=== PATIENT | male | born 1960 ===

== ENCOUNTER 2024-05-31 23:32 | Inpatient (IN) | payer MEDICARE, SELFPAY ==
[2024-05-31 18:35] VITALS: BP 134/88
--- NOTE | 2024-05-31 19:19 | ED.GENMED ---
History of Present Illness
General
Chief Complaint: Abdominal Pain
Source: patient
Time Seen by Provider: 05/31/24 19:09
History of Present Illness
History of Present Illness:
64-year-old male with past medical history of cardiac transplant in 2003 secondary to diagnosis of HOCM, newly diagnosed stage III chronic kidney disease and diabetes presenting to the emergency department for evaluation of left lower quadrant
abdominal pain that started about 3 days ago, gradually worsening during this time, today found to be febrile at urgent care, 100.6, thus having the urgent care recommended he come to the ER for further evaluation. Patient is noting moderate pain
within the left lower quadrant and states that even when pressing on the right side of his abdomen he is feeling the pain on the left. He notes nausea but without any vomiting. He notes a history of diverticulitis in the past also stating that he
had 2 previous bowel obstructions that required transfer from here to [facility]. He had his cardiac transplant at [facility] as well and notes good compliance with all of his medications. Patient without any other symptoms at this time.
Past History
Past History
ED Past Medical History: Arrthythmia (Atrial fibrillation), Cancer (Colon cancer), HTN, Hypercholesterolemia, Other (Factor V deficiency, past history of cardiomyopathy) and Other (PTT)
ED Past Surgical History: Cardiac, Tonsilectomy and Other
Social History
Tobacco: Non-smoker
Alcohol: Occasional
Drug: None
Personal:
Living: with family
Employment: Disabled (unknown)
Family History
Family History: Unable to obtain
Review of Systems
Review of Systems
All Other Systems: ROS reviewed and negative except as documented in HPI and ROS
Phy Exam
Physical Exam
Physical Exam:
GENERAL: Alert , appears uncomfortable
EYE: clear conjunctiva b/l
HEAD: NCAT
ENT: mmm.
CARDIAC: Regular rate and rhythm .
LUNGS: Clear breath sounds bilaterally, no acute respiratory distress, no wheezes/rales/rhonchi
ABDOMEN: Soft, moderate to severe left lower quadrant tenderness with rebound and guarding. When palpating the right side of the abdomen patient stating he has considerable pain in the left lower quadrant.
NEUROLOGICAL: Alert and oriented
SKIN: Warm and dry, skin intact.
MUSCULOSKELETAL: well perfused.
PSYCH: Normal and appropriate interaction.
Scores
Heart Failure Risk
Heart Failure Risk Score: Not Applicable
Heart Score for Chest Pain Patients
STEMI patient?: Not applicable
Withdrawal Assessment of Alcohol
Withdrawal Assessment Completed?: Not applicable
Course
Orders/Labs/Results
Orders:
Orders
05/31/24 19:17
Urinalysis Reflex To Culture Urgent
05/31/24 19:18
HYDROmorphone [Dilaudid] 0.5 mg IV NOW STA
Ondansetron Injectable [Zofran] 4 mg IV NOW STA
05/31/24 19:39
Complete Blood Count/With Diff Urgent
Comprehensive Metabolic Panel Urgent
Lactic Acid Urgent
Lipase Urgent
Blood Culture Urgent
FARIDEH Source: Blood/Venous
Specimen Description:
05/31/24 20:10
CT Abd/pel (oral only)-[facility] Only Urgent
Comment:
Reason For Exam: LLQ pain, hx divertic, ROME
Iohexol [Omnipaque] See Protocol PO NOW STA
05/31/24 23:00
LevoFLOXacin 750 MG/150 ML [Levaquin] 750 mg in 150 ml IV NOW
MetroNIDAZOLE 500 MG/100 ML [Flagyl 500 mg] 100 ml IV NOW
05/31/24 23:08
HYDROmorphone [Dilaudid] 0.5 mg IV NOW STA
Abnormal Lab Results
05/31/24
19:39
Abs Immat Gran (auto) 0.1 H 10^3/uL
(0-0.05)
Absolute Monos (auto) 0.8 H 10^3/uL
(0.1-0.6)
BUN 36 H mg/dl
(9-20)
Creatinine 2.0 H mg/dL
(0.7-1.3)
Glucose 108 H mg/dl
(70-99)
05/31/24 19:39
05/31/24 19:39
Vital Signs
Initial and Last Documented VS:
Initial Vital Signs
Temp Pulse Resp BP Pulse Ox
98.4 F 91 18 134/88 99
05/31/24 18:35 05/31/24 18:35 05/31/24 18:35 05/31/24 18:35 05/31/24 18:35
Last Documented Vital Signs
Temp Pulse Resp BP Pulse Ox
98.4 F 91 18 134/88 99
05/31/24 18:35 05/31/24 18:35 05/31/24 18:35 05/31/24 18:35 05/31/24 18:35
MDM/Problems Addressed
Differential Diagnosis Includes:
Diverticulitis, abscess/perforation, less concern for bowel obstruction given patient has had flatulence and no vomiting, appendicitis
MDM/Problems Addressed:
64-year-old male presenting to the emergency department for evaluation of gradually worsening left lower quadrant abdominal pain over the last 3 days. Today had a fever at urgent care to 100.6. Afebrile here. He does have significant pain with
rebound and guarding during my exam. I am most suspicious for diverticulitis. Concern for possible abscess/perforation. CT scan ordered. Labs including cultures and ordered as patient is a transplant patient and is immunocompromised. Half
milligram of Dilaudid ordered for pain and 4 mg of Zofran for nausea.
Chronic conditions affecting care: Immunosuppressed
*Radiology
Radiology exam reviewed: radiology read reviewed
*Pulse Oximetry
Patient hypoxic: no
*Critical Care Note
Total Time (30-74mins, 75-104mins- exclusive of procedures): Not Applicable
Data Reviewed
Review of Other/Old Records Reveals: Records and Radiology Studies
Source: patient and records
Comment
Comment:
Patient's creatinine 2.0. GFR of 36. CT scan changed from IV contrast only study to an oral contrast only study
Patient Management
Discussion with other providers: Hospitalist
Escalation/DeEscalation of care consider admission/obs:
Patients CT scan shows acute uncomplicated diverticulitis. No abscess or perforation. Also incidental 3mm gallstone but I do not have concern for acute cholecystitis. Given patient is immunocompromised combined with reported fever today and
continued pain will admit for IV abx and monitoring. Patient agreeable. Hospitalist aware and accepts for continued evaluation and treatment
ED Attending Note
-
Portions of this chart may have been created with voice recognition software.� Occasional wrong word or��sound alike� substitutions may have occurred due to the inherent limitations of voice recognition software.
Discharge Plan
Departure
Patient Disposition: Admit
Date of Disposition: 05/31/24
Time of Disposition: 23:07
Presentation/result/management discussed w/ accepting MD/DO: Hospitalist
Discharge Problem:
Diverticulitis, CKD (chronic kidney disease)
Prescriptions:
No Action
multivitamin Tablet
1 tab PO DAILY
polyethylene glycol 3350 [Miralax] 17 gram Powder In Packet
17 g PO DAILY
propranolol 60 mg Tablet
60 mg PO DAILY
sulfamethoxazole-trimethoprim [Bactrim DS] 800-160 mg Tablet
1 tab PO DAILY
aspirin 81 mg Tablet,Delayed Release (Dr/Ec)
81 mg PO DAILY
warfarin 3 mg Tablet
3 mg PO MOFR
calcium carbonate 600 mg calcium (1,500 mg) Tablet
600 mg PO BID
ascorbic acid (vitamin C) [Vitamin C] 500 mg Tablet
500 mg PO BID
lansoprazole 30 mg Capsule,Delayed Release(Dr/Ec)
30 mg PO BID
docusate sodium [Colace] 100 mg Capsule
400 mg PO DAILY
magnesium 250 mg Tablet
500 mg PO BID
ipratropium bromide 42 mcg (0.06 %) [place],Non-Aerosol
2 spray INTRANASAL QIDPRN PRN (Reason: post nasal drip)
tacrolimus 1 mg Capsule
1 mg PO BID
loratadine [Claritin] 10 mg Tablet
10 mg PO DAILY
fenofibrate nanocrystallized 145 mg Tablet
145 mg PO HS
cholecalciferol (vitamin D3) [Vitamin D3] 125 mcg (5,000 unit) Tablet
125 mcg PO DAILY
Digestive Probiotic 2 billion cell Capsule, Sprinkle
1 cap PO DAILYPRN PRN (Reason: constipation)
clindamycin HCl 300 mg Capsule
300 mg PO DAILYPRN PRN (Reason: prior to dental appt)
atorvastatin 80 mg tablet
80 mg PO QPM
bumetanide 2 mg tablet
4 mg PO DAILY
potassium chloride [Klor-Con M20] 20 mEq tablet,ER particles/crystals
20 meq PO DAILY
tamsulosin 0.4 mg capsule
0.8 mg PO HS
tacrolimus 0.5 mg capsule
0.5 mg PO QPM
oxycodone 5 mg tablet
5 mg PO DAILYPRN PRN (Reason: afternoon nap)
Patient Comments:
05/31/2024: last filled 05/04/24, 90 tabs for 30 days from [facility]
oxycodone 5 mg tablet
10 mg PO HS
Patient Comments:
05/31/2024: last filled 05/04/24, 90 tabs for 30 days from [facility]
sirolimus 0.5 mg tablet
1.5 mg PO DAILY
Ozempic 0.25 mg or 0.5 mg (2 mg/3 mL) pen injector
0.5 mg SC TH
warfarin 3 mg tablet
1.5 mg PO SUTUWETHSA
trazodone 100 mg tablet
150 mg PO HS
Referrals:
Denisse Jeronimo MD [Family Provider] -
Interventions
Interventions:
*Risk Screen - Suicide Last Done: 05/31/24 19:17
*General Assessment Last Done: 05/31/24 19:17
*Neglect/Abuse Screening Last Done: 05/31/24 19:17
ED- Fall Risk Assessment Last Done: 05/31/24 19:17
*ED COVID-19 Vaccine History Last Done: 05/31/24 19:17
IG-Knvfvn-Omagauedbi Assessment Last Done: 05/31/24 19:17
Discharge Date and Time
Print Language: TUNISIAN
[2024-05-31 19:24] VITALS: BMI 30.7
[2024-05-31] MEDS: ZOFRAN 4 MG IV (19:42)
[2024-05-31] MEDS: DILAUDID 0.5 MG IV ×2 (19:44→23:23)
[2024-05-31 19:53] VITALS: BP 123/88
[2024-05-31 19:53] LABS: % Basophils 0.3 % (0-2); % Eosinophils 1.1 % (0-6); % Immature Granulocytes 0.5 % (0-0.5); % Lymphocytes 23.6 % (20.5-51.1); % Monocytes 8.2 % (1.7-9.3); % Neutrophils 66.3 % (42.2-75.2); Absolute Eosinophils 0.1 10^3/uL (0-0.7); Absolute Immature Granulocytes 0.1 10^3/uL (0-0.05); Absolute Lymphocytes 2.3 10^3/uL (1.2-3.4); Absolute Monocytes 0.8 10^3/uL (0.1-0.6); Absolute Neutrophils 6.5 10^3/uL (1.4-6.5); Hematocrit 40.9 % (39.0-52.0); Hemoglobin 14.4 g/dL (13.0-18.0); Mean Corp Hgb Conc. 35.2 g/dL (33.0-37.0); Mean Corpuscular Hgb 29.8 pg (27.0-31.0); Mean Corpuscular Volume 84.5 fL (80.0-94.0); Mean Platelet Volume 9.2 fL (7.4-10.4); Nucleated Red Blood Cells % 0 % (-); Platelet Count 206 10^3/uL (130-400); Red Blood Cell Count 4.84 10^6/uL (4.70-6.10); Red Cell Dist. Width 13.5 % (11.5-14.5); White Blood Cell Count 9.8 10^3/uL (4.8-10.8)
[2024-05-31 20:00] VITALS: BP 120/78
[2024-05-31 20:07] LABS: Lactic Acid 0.8 mmol/L (0.7-2.0)
[2024-05-31 20:09] LABS: ALT (SGPT) 30 U/L (0-50); AST (SGOT) 37 U/L (17-59); Albumin 4.5 g/dl (3.5-5.0); Alkaline Phosphatase 53 U/L (38-126); Blood Urea Nitrogen 36 mg/dl (9-20); Calcium 9.4 mg/dl (8.4-10.2); Carbon Dioxide 28 mmol/L (22-30); Chloride 98 mmol/L (98-107); Estimated Creatinine Clearance 43 ml/min; Glucose 108 mg/dl (70-99); Potassium 3.8 mmol/L (3.5-5.1); Sodium 137 mmol/L (135-145); Total Bilirubin 0.8 mg/dl (0.2-1.3); Total Protein 7.3 g/dl (6.3-8.2); eGFR 36.81
[2024-05-31 20:10] LABS: Lipase 176 U/L (23-300)
[2024-05-31] MEDS: OMNIPAQUE 50 ML PO (20:23)
[2024-05-31 21:00] VITALS: BP 113/79
[2024-05-31 22:00] VITALS: BP 117/74
[2024-05-31 23:00] VITALS: BP 103/63
--- NOTE | 2024-05-31 23:08 | HPS.HSE ---
Family Physician
-
Family Physician: Denisse Jeronimo MD
Chief Complaint
-
left lower quadrant pain
History of Present Illness
64-year-old male with past medical history of cardiac transplant in 2003 secondary to diagnosis of HCM, newly diagnosed stage III chronic kidney disease and diabetes, rls, favor V leiden, SBO, DM, atrial fib, HTn, HLD presenting to the emergency
department for evaluation of left lower quadrant abdominal pain that started about 3 days ago, gradually worsening during this time, today found to be febrile at urgent care, 100.6, thus having the urgent care recommended he come to the ER for
further evaluation. patient stated intermittent sharp pain. He notes nausea but without any vomiting. denied diarrhea. denied chest pain, sob. denied MORALES, dizzy or syncopal episode. denied dysuria or hematuria.
CT with diverticulitis. received Levaquin and Flagyl in ER. admitting for further management.
Medical History
Past Medical History
Past Medical History: Reports Other
Additional Past Medical History:
RLS
CHF
chronic back pain
factor V Leiden
SBO
stage 3 CKD
DM
atrial fib
HTN
Past Surgical History: Reports Other
Additional Past Surgical History:
heart transplant
ascending colon tumor removed
Social History
Tobacco: Non-smoker
Alcohol: None
Drug: None
Living: With Family
Family History
Family History: Not pertinent
Allergies / Home Medications
Allergies reflects when Allergies were last updated in [employer].
Home Medications with original date entered in [employer]
Allergy/Medication List:
Allergies
Allergy/AdvReac Type Severity Reaction Status Date / Time
amoxicillin trihydrate Allergy Severe Shortness Verified 05/31/24 18:44
[From Augmentin] of Breath
enalapril Allergy Severe Cough Verified 06/29/22 04:33
potassium clavulanate Allergy Severe Rash Verified 06/29/22 04:33
[From Augmentin]
ampicillin Allergy Rash Verified 06/29/22 04:33
unisyn Allergy Rash Uncoded 06/29/22 04:33
Home Medications
L.acidoph,rhamnosus-B.infantis,longum 2 billion cell sprinkle capsule (Digestive Probiotic) 1 cap PO DAILYPRN PRN constipation 06/29/22
ascorbic acid (vitamin C) 500 mg tablet (Vitamin C) 500 mg PO BID 06/29/22
aspirin 81 mg tablet,delayed release 81 mg PO DAILY 06/29/22
calcium carbonate 600 mg PO BID 06/29/22
cholecalciferol (vitamin D3) 125 mcg (5,000 unit) tablet (Vitamin D3) 125 mcg PO DAILY 06/29/22
clindamycin HCl 300 mg capsule 300 mg PO DAILYPRN PRN prior to dental appt 06/29/22
docusate sodium 100 mg capsule (Colace) 400 mg PO DAILY 06/29/22
fenofibrate nanocrystallized 145 mg tablet 145 mg PO HS 06/29/22
ipratropium bromide 42 mcg (0.06 %) nasal spray 2 spray intranasal QIDPRN PRN post nasal drip 06/29/22
lansoprazole 30 mg capsule,delayed release 30 mg PO BID 06/29/22
loratadine 10 mg tablet (Claritin) 10 mg PO DAILY 06/29/22
magnesium 250 mg tablet 500 mg PO BID 06/29/22
multivitamin 1 tab PO DAILY 06/29/22
polyethylene glycol 3350 17 gram oral powder packet (Miralax) 17 g PO DAILY constipation 06/29/22
propranolol 60 mg tablet 60 mg PO DAILY 06/29/22
sulfamethoxazole 800 mg-trimethoprim 160 mg tablet (Bactrim DS) 1 tab PO DAILY 06/29/22
tacrolimus 1 mg capsule, immediate-release 1 mg PO BID 06/29/22
warfarin 3 mg tablet 3 mg PO MOFR 06/29/22
atorvastatin 80 mg tablet 80 mg PO QPM 05/31/24
bumetanide 2 mg tablet 4 mg PO DAILY 05/31/24
oxycodone 5 mg tablet 5 mg PO DAILYPRN PRN afternoon nap 05/31/24
oxycodone 5 mg tablet 10 mg PO HS 05/31/24
potassium chloride 20 mEq tablet,extended release(part/cryst) (Klor-Con M) 20 meq PO DAILY 05/31/24
semaglutide 0.25 mg or 0.5 mg (2 mg/3 mL) subcutaneous pen injector (Ozempic) 0.5 mg SC TH 05/31/24
sirolimus 0.5 mg tablet 1.5 mg PO DAILY 05/31/24
tacrolimus 0.5 mg capsule, immediate-release 0.5 mg PO QPM taken w/ 1mg = 1.5mg 05/31/24
tamsulosin 0.4 mg capsule 0.8 mg PO HS 05/31/24
trazodone 100 mg tablet 150 mg PO HS 05/31/24
warfarin 3 mg tablet 1.5 mg PO SUTUWETHSA 05/31/24
Review of Systems
-
Constitutional: Reports No Symptoms
EENT: Reports No Symptoms
Respiratory: Reports No Symptoms
Cardiac: Reports No Symptoms
Abdomen/GI: Reports Abdominal Pain
: Reports No Symptoms
Musculoskeletal: Reports No Symptoms
Skin: Reports No Symptoms
Neurological: Reports No Symptoms
Endocrine: Reports No Symptoms
Hematologic/Lymphatic: Reports No Symptoms
Psych: Reports No Symptoms
Physical Exam
Vital Signs
Vital Signs
Temp Pulse Resp BP Pulse Ox
98.4 F 91 18 134/88 99
05/31/24 18:35 05/31/24 18:35 05/31/24 18:35 05/31/24 18:35 05/31/24 18:35
Physical Exam
General: Well Developed, Well Nourished and No Apparent Distress
HEENT: NormoCephalic, Moist mucous membranes and Atraumatic
Respiratory: Clear
Cardiac: S1/S2 and Regular Rhythm; No Murmur or Rub
GI: Soft, Non Tender, Non Distended and Normal Bowel Sounds; No Organomegaly
Rectal: Deferred by Provider
Musculoskeletal: No Clubbing, No Cyanosis and No Edema
Skin: No Rash
Neuro: AO x 3 and Nonfocal/grossly intact
Psych: Calm
Laboratory Results
-
05/31/24 19:39
05/31/24 19:39
Laboratory Results
Lactic Acid 0.8 mmol/L (0.7-2.0) 05/31/24 19:39
Total Bilirubin 0.8 mg/dl (0.2-1.3) 05/31/24 19:39
AST 37 U/L (17-59) 05/31/24 19:39
ALT 30 U/L (0-50) 05/31/24 19:39
Alkaline Phosphatase 53 U/L (38-126) 05/31/24 19:39
Lipase 176 U/L (23-300) 05/31/24 19:39
Data Reviewed
-
CT Scan: Report Reviewed by me
Lab Data: Labs Reviewed by me
Impression/Plan
-
#acute diverticulitis
-CT abdomen pelvis with Findings suggesting mild acute diverticulitis of the proximal sigmoid colon. New. No evidence of perforation or abscess formation.3 mm gallstone. New Simple bilateral renal cysts. Increased in number and size.Mild prostate
hypertrophy. Progressed
-blood culture sent from ER
-iv Flagyl and Levaquin continued
-will keep patient NPO, advance as tolerated
-ctm
#CKD stage 3
-cr 2.0
-ctm
#hxt of obstructive HCM
-s/p cardiac transplant
-sirolimus,tacrolimus continued
-Bactrim held
#BPH
-Flomax continued
#hxt of CHF
-not in acute exacerbation
-Bumex continued
-strict i & O
-daily weight
-ctm
#HLD
-fenofibrate continued
#GERD
-PPI continued
#paroxysmal atrial fib
-obtain EKG
-propranolol continued
-Coumadin continued
#type 2 DM
-sliding scale
-CHO diet
-hold Ozempic
#DVT prophylaxis
-Coumadin
#CODE status
-full code
[2024-05-31] MEDS: FLAGYL 500 MG 100 IV (23:27)
[2024-05-31 23:50] LABS: Urine Albumin Negative (Neg - Trace); Urine Bilirubin Negative (Negative); Urine Character Clear (Clear); Urine Color Yellow; Urine Glucose Negative (Negative); Urine Ketone Negative (Negative); Urine Leukocyte Negative (Negative); Urine Nitrite Negative (Negative); Urine Occult Blood Negative (Negative); Urine Urobilinogen Negative (Neg - 1+)
--- NOTE | 2024-05-31 23:55 | W.PN.UPDATE ---
Update Note
Progress Note Update
This is an addendum to the H&P written by Mabel Landa on 05/31/2024. 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
64-year-old male history of cardiac transplant 2003 secondary to hypertrophic cardiomyopathy, diabetes, CKD 3 with baseline creatinine of 2, factor V [place], small bowel obstruction, paroxysmal atrial fibrillation on Coumadin, hypertension,
hyperlipidemia presenting with left lower quadrant abdominal pain starting a few days ago with fever.
CT abdomen pelvis shows mild acute diverticulitis of proximal sigmoid colon. Levaquin/Flagyl.
Recently hospitalized at [facility] for CHF exacerbation but is currently well compensated on Bumex.
[2024-06-01] VITALS (11 sets, daily range): BP systolic 102–124; BP diastolic 71–92; BMI 30.7
[2024-06-01] MEDS: LEVAQUIN 150 IV (00:31)
[2024-06-01] MEDS: PROGRAF 1 MG PO ×3 (03:19→17:39)
[2024-06-01] MEDS: ROXICODONE 5 MG PO ×3 (03:24→19:11)
[2024-06-01] MEDS: PROGRAF 0.5 MG PO ×2 (03:24→17:39)
[2024-06-01 03:54] LABS: Hematocrit 36.7 % (39.0-52.0); Mean Corp Hgb Conc. 35.4 g/dL (33.0-37.0); Mean Corpuscular Hgb 28.9 pg (27.0-31.0); Mean Corpuscular Volume 81.6 fL (80.0-94.0); Mean Platelet Volume 8.9 fL (7.4-10.4); Platelet Count 189 10^3/uL (130-400); Red Cell Dist. Width 13.5 % (11.5-14.5); White Blood Cell Count 7.6 10^3/uL (4.8-10.8)
[2024-06-01 04:00] LABS: INR 2.55; PT 27.4 Sec (11.4-14.6)
[2024-06-01 04:09] LABS: Blood Urea Nitrogen 33 mg/dl (9-20); Carbon Dioxide 30 mmol/L (22-30); Chloride 98 mmol/L (98-107); Estimated Creatinine Clearance 54 ml/min; Glucose 94 mg/dl (70-99); Potassium 3.5 mmol/L (3.5-5.1); Sodium 136 mmol/L (135-145); eGFR 48.11
--- NOTE | 2024-06-01 08:00 | W.PN.HOSP.TC ---
Today's Communication/Plan
-
Continue antibiotics
Clear liquid diet
Assessment / Plan
Assessment / Plan
Gen-AAOx3, NAD
HEENT-NC, AT, anicteric, clear oral mm
Neck-supple
CV-reg, no M, +S1/S2
Lungs-clear B/L
Abd-soft, mild left lower quadrant tenderness, no rebound or guarding
Ext-no edema
Musculoskeletal-no cyanosis, clubbing
Skin-warm and dry
Neuro-grossly non-focal
Psych-calm, cooperative
Acute sigmoid diverticulitis -no abscess, no perforation. Start clears. Continue IV antibiotics. First episode of diverticulitis for him. Last colonoscopy was 2 years ago.
History of bowel obstructions -last one requiring operative intervention. Prior history abdominal surgery with mesh placement.
CKD 3a -baseline creatinine 1.8. Currently at baseline.
Hx of cardiac transplant -2003. For obstructive/hypertrophic cardiomyopathy.
Paroxysmal atrial fibrillation -on warfarin therapy. INR therapeutic.
Chronic heart failure, unknown type -appears compensated. Continue Bumex.
DM 2 without hyperglycemia - On Ozempic once weekly, every . Hemoglobin A1c pending. Has a continuous glucose monitor.
Hyperlipidemia -on atorvastatin.
GERD
Obesity due to excess calories
Full code
Anticipated Discharge: Within 24 hours
Subjective/Interval History
-
Date of Service: June 01, 2024
Patient seen and examined. Some LLQ pain.
Objective Data
-
Labs:
Laboratory Results
05/31/24 06/01/24
19:39 03:37
WBC 7.6
Hgb 13.0
Hct 36.7 L
Plt Count 189
PT 27.4 H
INR 2.55
Sodium 137 136
Potassium 3.8 3.5
Chloride 98 98
Carbon Dioxide 28 30
BUN 36 H 33 H
Creatinine 2.0 H 1.6 H
Glucose 108 H 94
Calcium 9.4 9.0
Total Bilirubin 0.8
AST 37
ALT 30
Alkaline Phosphatase 53
Vital Signs:
Vital Signs
Temp Pulse Resp BP Pulse Ox
98.5 F 89 20 106/75 96
06/01/24 07:35 06/01/24 06:45 06/01/24 04:00 06/01/24 04:30 06/01/24 06:45
Review of Systems
-
History Source: Patient
All other systems: Reviewed and negative
[2024-06-01 08:17] LABS: Glucose - Point of Care 94 mg/dl (70-99)
[2024-06-01] MEDS: MAGNESIUM OXIDE 500 MG PO ×2 (08:36→20:13)
[2024-06-01] MEDS: COLACE 400 MG PO (08:37)
[2024-06-01] MEDS: BUMEX 4 MG PO (08:37)
[2024-06-01] MEDS: OSCAL CAL 500 500 MG PO ×2 (08:37→20:13)
[2024-06-01] MEDS: ASPIR LOW (ENTERIC COATED) 81 MG PO (08:37)
[2024-06-01] MEDS: PROTONIX 40 MG PO ×2 (08:37→20:13)
[2024-06-01] MEDS: VITAMIN C 500 MG PO ×2 (08:38→20:13)
[2024-06-01] MEDS: THERAGRAN 1 TABLET PO (08:38)
[2024-06-01] MEDS: KCL 20 MEQ PO (08:38)
[2024-06-01] MEDS: VITAMIN D3 (cholecalciferol) 125 MCG PO (08:38)
[2024-06-01] MEDS: TYLENOL 650 MG PO (08:43)
[2024-06-01] MEDS: FLAGYL 500 MG 100 IV ×2 (08:43→15:50)
[2024-06-01] MEDS: INDERAL LA 60 MG PO (09:01)
[2024-06-01] MEDS: RAPAMUNE 1.5 MG PO (09:02)
--- NOTE | 2024-06-01 10:22 | PTCARENOTE ---
Received pt awake and alert.Speech is appropriate.Gait is steady.c/o 5/10 abdominal pain.Medicated with Tylenol.Pt is requesting Oxycodone prn if his abdominal pain becomes severe.Dr Santacruz made aware.100% A paced.Lungs CTA.POX 97% on RA.Tolerating
clear liquids.No BM.+ flatus and abdominal pain.Voiding in bathroom.Plan of care discussed.Pt is a tele pt as per MD order.Pt requests a private room as he has a h/o heart transplant.
[2024-06-01 11:04] LABS: Glycohemoglobin (HgbA1c) 5.6 % (4.0-5.6)
--- NOTE | 2024-06-01 11:55 | CM ---
CM following re: discharge planning.
Reviewed pt's chart, met with pt.
Pt is a 64 year old male, admitted with primary dx of DVT.
Pt reports he lives with spouse and 2 children in a 2SH, 2 steps to enter, has 4 supportive children. 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 No DME, VN or SNF history.
PCP: Denisse Jeronimo
Pharmacy: [facility].
D./C ploan: home with anticipated no needs. Family to transport at discharge.
CM will follow with discharge plan updates as hospitalization progresses
[2024-06-01 12:22] LABS: Glucose - Point of Care 99 mg/dl (70-99)
--- NOTE | 2024-06-01 12:52 | PTCARENOTE ---
Pt assessed.+ BM,brown,soft..c/o 06/01 abdominal pain/throbbing after BM.Dr Santacruz made aware.
--- NOTE | 2024-06-01 16:18 | PTCARENOTE ---
Pt assessed.No abdominal pain at this time.No change in assessment noted.
--- NOTE | 2024-06-01 16:28 | PTCARENOTE ---
Report given to 4 Randy RN.
[2024-06-01 17:24] LABS: Glucose - Point of Care 174 mg/dl (70-99)
[2024-06-01] MEDS: LIPITOR 80 MG PO (17:39)
[2024-06-01] MEDS: COUMADIN 1.5 MG PO (17:40)
[2024-06-01] MEDS: NOVOLOG FLEXPEN-LOW RESISTANCE 1 UNITS SC (18:02)
[2024-06-01 21:38] LABS: Glucose - Point of Care 88 mg/dl (70-99)
[2024-06-01] MEDS: ROXICODONE 10 MG PO (21:59)
[2024-06-01] MEDS: DESYREL 150 MG PO (21:59)
[2024-06-01] MEDS: TRICOR 145 MG PO (21:59)
[2024-06-01] MEDS: FLOMAX 0.8 MG PO (21:59)
[2024-06-02] MEDS: FLAGYL 500 MG 100 IV ×2 (00:28→08:07)
[2024-06-02 03:07] VITALS: BP 101/65
[2024-06-02 06:00] VITALS: BMI 29.9
[2024-06-02 07:00] LABS: Glucose - Point of Care 93 mg/dl (70-99)
[2024-06-02] MEDS: NOVOLOG FLEXPEN-LOW RESISTANCE SC ×2 (07:01→11:46)
[2024-06-02 07:56] VITALS: BP 100/69
[2024-06-02] MEDS: OSCAL CAL 500 500 MG PO (08:06)
[2024-06-02] MEDS: MAGNESIUM OXIDE 500 MG PO (08:06)
[2024-06-02] MEDS: VITAMIN C 500 MG PO (08:06)
[2024-06-02] MEDS: THERAGRAN 1 TABLET PO (08:06)
[2024-06-02] MEDS: COLACE 400 MG PO (08:06)
[2024-06-02] MEDS: VITAMIN D3 (cholecalciferol) 125 MCG PO (08:06)
[2024-06-02] MEDS: KCL 20 MEQ PO (08:06)
[2024-06-02] MEDS: INDERAL LA 60 MG PO (08:06)
[2024-06-02] MEDS: BUMEX 4 MG PO (08:06)
[2024-06-02] MEDS: ASPIR LOW (ENTERIC COATED) 81 MG PO (08:06)
[2024-06-02] MEDS: PROGRAF 1 MG PO (08:07)
[2024-06-02] MEDS: PROTONIX 40 MG PO (08:07)
[2024-06-02] MEDS: RAPAMUNE 1.5 MG PO (08:07)
[2024-06-02 08:26] LABS: Blood Urea Nitrogen 31 mg/dl (9-20); Calcium 9.4 mg/dl (8.4-10.2); Carbon Dioxide 28 mmol/L (22-30); Chloride 97 mmol/L (98-107); Estimated Creatinine Clearance 47 ml/min; Glucose 89 mg/dl (70-99); Potassium 3.2 mmol/L (3.5-5.1); Sodium 135 mmol/L (135-145); eGFR 48.11
[2024-06-02 09:22] LABS: INR 2.55; PT 27.8 Sec (11.4-14.6)
--- NOTE | 2024-06-02 10:17 | W.PN.HOSP.TC ---
Today's Communication/Plan
-
Advance diet
Replete potassium
Discharge
Assessment / Plan
Assessment / Plan
Gen-AAOx3, NAD
HEENT-NC, AT, anicteric, clear oral mm
Neck-supple
CV-reg, no M, +S1/S2
Lungs-clear B/L
Abd-soft, mild left lower quadrant tenderness, no rebound or guarding
Ext-no edema
Musculoskeletal-no cyanosis, clubbing
Skin-warm and dry
Neuro-grossly non-focal
Psych-calm, cooperative
Acute sigmoid diverticulitis -no abscess, no perforation. Tolerating clears. Advance diet as tolerated. Possible discharge later today if stable. Outpatient follow-up.
Hypokalemia -increase dose of potassium. Check magnesium.
History of bowel obstructions -last one requiring operative intervention. Prior history abdominal surgery with mesh placement.
CKD 3a -baseline creatinine 1.8. Currently at baseline.
Hx of cardiac transplant -2003. For obstructive/hypertrophic cardiomyopathy.
Paroxysmal atrial fibrillation -on warfarin therapy. INR therapeutic.
Chronic heart failure, unknown type -appears compensated. Continue Bumex.
DM 2 without hyperglycemia - On Ozempic once weekly, every . Hemoglobin A1c 5.6%. Has a continuous glucose monitor.
Hyperlipidemia -on atorvastatin.
GERD
Obesity due to excess calories
Full code
Dispo -possible discharge today if he remains stable, tolerating diet.
32-minute spent in discharge process.
Anticipated Discharge: Today
Subjective/Interval History
-
Date of Service: June 02, 2024
Patient seen and examined. Feeling much better. Less abdominal pain.
Objective Data
-
Labs:
Laboratory Results
06/02/24
07:45
PT 27.8 H
INR 2.55
Sodium 135
Potassium 3.2 L
Chloride 97 L
Carbon Dioxide 28
BUN 31 H
Creatinine 1.6 H
Glucose 89
Calcium 9.4
Vital Signs:
Vital Signs
Temp Pulse Resp BP Pulse Ox
97.5 F 95 16 100/69 98
06/02/24 07:56 06/02/24 07:56 06/02/24 07:56 06/02/24 08:06 06/02/24 07:56
I&O
06/01/24 06/02/24 06/03/24
06:59 06:59 06:59
Intake Total 2039
Balance 2039
Review of Systems
-
History Source: Patient
All other systems: Reviewed and negative
--- NOTE | 2024-06-02 10:26 | W.DS.TRANS ---
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
-
Discharge Instructions:
Discharge Diagnosis/Procedures Acute diverticulitis
Diet Diabetic, Carb Controlled,Low Residue
Activity As tolerated
Driving Restrictions As prior to admission
Bathing Restrictions None
Instructions:
Stand-Alone Forms:
Changes to Home Medications: No
Discharge Medications:
DC Medications w/original date entered in [employer]
L.acidoph,rhamnosus-B.infantis,longum 2 billion cell sprinkle capsule (Digestive Probiotic) 1 cap PO DAILYPRN PRN constipation 06/29/22
ascorbic acid (vitamin C) 500 mg tablet (Vitamin C) 500 mg PO BID 06/29/22
aspirin 81 mg tablet,delayed release 81 mg PO DAILY 06/29/22
calcium carbonate 600 mg PO BID 06/29/22
cholecalciferol (vitamin D3) 125 mcg (5,000 unit) tablet (Vitamin D3) 125 mcg PO DAILY 06/29/22
clindamycin HCl 300 mg capsule 300 mg PO DAILYPRN PRN prior to dental appt 06/29/22
docusate sodium 100 mg capsule (Colace) 400 mg PO DAILY 06/29/22
fenofibrate nanocrystallized 145 mg tablet 145 mg PO HS 06/29/22
ipratropium bromide 42 mcg (0.06 %) nasal spray 2 spray intranasal QIDPRN PRN post nasal drip 06/29/22
lansoprazole 30 mg capsule,delayed release 30 mg PO BID 06/29/22
loratadine 10 mg tablet (Claritin) 10 mg PO DAILY 06/29/22
magnesium 250 mg tablet 500 mg PO BID 06/29/22
multivitamin 1 tab PO DAILY 06/29/22
polyethylene glycol 3350 17 gram oral powder packet (Miralax) 17 g PO DAILY constipation 06/29/22
propranolol 60 mg tablet 60 mg PO DAILY 06/29/22
sulfamethoxazole 800 mg-trimethoprim 160 mg tablet (Bactrim DS) 1 tab PO DAILY 06/29/22
tacrolimus 1 mg capsule, immediate-release 1 mg PO BID 06/29/22
warfarin 3 mg tablet 3 mg PO MOFR 06/29/22
atorvastatin 80 mg tablet 80 mg PO QPM 05/31/24
bumetanide 2 mg tablet 4 mg PO DAILY 05/31/24
oxycodone 5 mg tablet 5 mg PO DAILYPRN PRN afternoon nap 05/31/24
oxycodone 5 mg tablet 10 mg PO HS 05/31/24
potassium chloride 20 mEq tablet,extended release(part/cryst) (Klor-Con M) 20 meq PO DAILY 05/31/24
semaglutide 0.25 mg or 0.5 mg (2 mg/3 mL) subcutaneous pen injector (Ozempic) 0.5 mg SC TH 05/31/24
sirolimus 0.5 mg tablet 1.5 mg PO DAILY 05/31/24
tacrolimus 0.5 mg capsule, immediate-release 0.5 mg PO QPM taken w/ 1mg = 1.5mg 05/31/24
tamsulosin 0.4 mg capsule 0.8 mg PO HS 05/31/24
trazodone 100 mg tablet 150 mg PO HS 05/31/24
warfarin 3 mg tablet 1.5 mg PO SUTUWETHSA 05/31/24
levofloxacin 750 mg tablet 750 mg PO Q OTHER DAY #3 tabs 06/02/24
metronidazole 500 mg tablet 500 mg PO TID #16 tabs 06/02/24
Home Medication Changes
Pending Results: No
[2024-06-02 10:44] VITALS: BP 109/78
[2024-06-02] MEDS: KCL 40 MEQ PO (10:47)
[2024-06-02 10:56] LABS: Magnesium 1.7 mg/dl (1.6-2.3)
--- NOTE | 2024-06-02 11:32 | CM ---
it disaster recovery manager reviewed patient's chart and patient is for discharge to home today, no needs.
Plan; Home no needs.
[2024-06-02 11:38] LABS: Glucose - Point of Care 130 mg/dl (70-99)
[2024-06-02] MEDS: FLAGYL 500 MG IV (14:35)
[2024-06-02 14:41] VITALS: BP 109/70
== END 2024-06-02 16:32 | disposition home or self-care (01) | DRG 392 ==
LOC: 4 WEST ACU 23:32
PROVIDERS: Physician Assistant Medical; Registered Nurse; ADMITTING PHYSICIAN Hospitalist; ATTENDING PHYSICIAN Hospitalist; EMERGENCY PHYSICIAN Emergency Medicine; FAMILY PHYSICIAN Family Medicine
DX: K57.32 Diverticulitis of large intestine without perforation or abscess without bleeding (principal); I42.1 Obstructive hypertrophic cardiomyopathy; D68.2 Hereditary deficiency of other clotting factors; I13.0 Hypertensive heart and chronic kidney disease with heart failure and stage 1 through stage 4 chronic kidney disease, or unspecified chronic kidney disease; N17.9 Acute kidney failure, unspecified; Z94.1 Heart transplant status; D84.9 Immunodeficiency, unspecified; E11.22 Type 2 diabetes mellitus with diabetic chronic kidney disease; G89.29 Other chronic pain; K21.9 Gastro-esophageal reflux disease without esophagitis; M54.9 Dorsalgia, unspecified; E66.09 Other obesity due to excess calories; E78.5 Hyperlipidemia, unspecified; E87.6 Hypokalemia; G25.81 Restless legs syndrome; I50.9 Heart failure, unspecified; N18.31 Chronic kidney disease, stage 3a; I48.0 Paroxysmal atrial fibrillation; E78.00 Pure hypercholesterolemia, unspecified; Z85.038 Personal history of other malignant neoplasm of large intestine; Z79.82 Long term (current) use of aspirin; Z88.0 Allergy status to penicillin; Z88.8 Allergy status to other drugs, medicaments and biological substances; Z79.621 Long term (current) use of calcineurin inhibitor; Z68.29 Body mass index [BMI] 29.0-29.9, adult
CPT/HCPCS: 74176; 80048; 80053; 81003; 82962; 83036; 83605; 83690; 83735; 85025; 85027; 85610; 87040; 93005; 96374; 96375; 96376; 99285

== ENCOUNTER 2025-07-08 10:43 | Emergency (ER) | payer MEDICARE, SELFPAY ==
[2025-07-08 11:06] VITALS: BP 106/74
--- NOTE | 2025-07-08 12:49 | ED.GENMED ---
History of Present Illness
General
Chief Complaint: Abdominal Symptoms
Source: patient and records
Exam Limitations: none
Time Seen by Provider: 07/08/25 12:15
History of Present Illness
History of Present Illness:
65yoM with a history of prior heart transplant in 2003, atrial fibrillation on Coumadin, CHF, type 2 diabetes, hypertension, diverticulosis, and prior neck infection after sleep apnea implant on lifelong Bactrim presenting for evaluation of
abdominal pain. Symptoms began 3 days ago. He felt feverish and nauseous on day 1. He started to experience left lower quadrant abdominal pain after having several bowel movements. Symptoms feel similar to his prior bout of diverticulitis. Pain
has been gradually worsening and is worse with any sort of movement. He denies any fevers in the past 48 hours. He has taken MiraLAX for constipation and now bowel movements are loose. He denies any urinary symptoms. Patient was hospitalized in
May 2024 for acute diverticulitis. He was prescribed Levaquin and Flagyl and subsequently had an Achilles tendon injury which his PCP told him was secondary to the Levaquin.
Past History
Past History
ED Past Medical History: Arrthythmia (Atrial fibrillation), Cancer (Colon cancer), HTN, Hypercholesterolemia, Other (Factor V deficiency, past history of cardiomyopathy) and Other (PTT)
ED Past Surgical History: Cardiac, Tonsilectomy and Other
Social History
Tobacco: Non-smoker
Alcohol: Occasional
Drug: None
Personal:
Living: with family
Employment: Disabled (unknown)
Family History
Family History: Unable to obtain
Phy Exam
General Physical Exam
General Presentation: well appearing and no apparent distress
General Skin: warm and dry
General Habitus: normal
General Mental: alert
ENT Exam
ENT Exam: normocephalic
Pulmonary Exam
Pulmonary Exam: no respiratory distress
Gastrointestinal Exam
Gastrointestinal Exam: soft, non distended, surgical scar and other (+Tenderness in the LUQ and LLQ with voluntary guarding. Abdomen soft, non-distended. )
Neurological Exam
Neurological Exam: alert
Sissy Coma Scale
Eye Opening: Spontaneous
Verbal Response: Oriented
Motor Response: Obeys Commands
GCS Total Score: 15
Skin Exam
Skin Exam: normal color and warm/dry
Psychiatric Exam
Psychiatric Exam: normal mood/affect
Course
Orders/Labs/Results
Orders:
Orders
07/08/25 12:47
0.9% Sodium Chloride 500 ml [Nss] 500 ml IV BOLUS
HYDROmorphone [Dilaudid] 0.5 mg IV NOW STA
Iohexol [Omnipaque] See Protocol PO NOW STA
07/08/25 12:48
CT Abd/pel (oral only)-DH Only Urgent
Comment:
Reason For Exam: LLQ pain
07/08/25 13:29
Comprehensive Metabolic Panel Urgent
Lipase Urgent
Prothrombin Time Urgent
07/08/25 13:30
Complete Blood Count/With Diff Urgent
Lactate Level [Lactic Acid] Urgent
Abnormal Lab Results
07/08/25 07/08/25
13:29 13:30
RBC 4.32 L 10^6/uL
(4.70-6.10)
Hgb 12.2 L g/dL
(13.0-18.0)
Hct 35.6 L %
(39.0-52.0)
Abs Immat Gran (auto) 0.1 H 10^3/uL
(0-0.05)
Immature Gran % 0.9 H %
(0-0.5)
PT 25.3 H Sec
(11.4-14.6)
BUN 43 H mg/dl
(9-20)
Creatinine 2.1 H mg/dL
(0.7-1.3)
Glucose 100 H mg/dl
(70-99)
Lactic Acid 0.6 L mmol/L
(0.7-2.0)
07/08/25 13:30
07/08/25 13:29
Vital Signs
Initial and Last Documented VS:
Initial Vital Signs
Temp Pulse Resp BP Pulse Ox
98.9 F 99 20 106/74 99
07/08/25 11:06 07/08/25 11:06 07/08/25 11:06 07/08/25 11:06 07/08/25 11:06
Last Documented Vital Signs
Temp Pulse Resp BP Pulse Ox
98.9 F 90 16 110/74 98
07/08/25 11:06 07/08/25 17:42 07/08/25 17:30 07/08/25 17:47 07/08/25 17:30
MDM/Problems Addressed
Differential Diagnosis Includes:
65yoM here with L sided abd pain x several days. Hx of diverticulitis and this feels the same. Hurt feverish 3 days ago but not since. Hx of heart transplant. VSS. He is well appearing in no distress. Voluntary guarding noted on abdominal exam.
Differential diagnosis includes but is not limited to: diverticulitis, diverticular abscess, perforated viscous, colitis, constipation
Initial ED plan: Check abdominal labs, lactate, INR, and CT abdomen with PO contrast only due to history of CKD. IV Dilaudid and fluid bolus.
*Pulse Oximetry
SaO2: 99
Oxygen Mode of Delivery: Room air
Patient hypoxic: no (99%)
*Critical Care Note
Total Time (30-74mins, 75-104mins- exclusive of procedures): Not Applicable
Update Note
Update Note:
Creatinine is 2.1 which is near his baseline. He was able to show me his recent outpatient blood work and baseline appears to be around 1.9-2. White count and lactate within normal limits. INR is therapeutic at 2.2. CT shows minor acute
diverticulitis without evidence of perforation or abscess. Offered admission although patient feels well for discharge and would like to trial oral antibiotics which I believe is reasonable. He was started on a course of cefdinir and Flagyl
(allergy to Augmentin and was told never to have fluoroquinolones again after a tendon injury). Advised clear liquid diet and close follow-up with PCP. He is also scheduled to see gastroenterology next month. Strict ED return precautions reviewed
and he was discharged in stable condition.
ED Attending Note
-
Portions of this chart may have been created with voice recognition software.� Occasional wrong word or��sound alike� substitutions may have occurred due to the inherent limitations of voice recognition software.
Discharge Plan
Departure
Patient Disposition: Home (Routine Discharge)
Date of Disposition: 07/08/25
Time of Disposition: 17:28
Patient with high blood pressure during this ER visit?: No
Discharge Problem:
Acute diverticulitis
Instructions: Diverticulitis - Discharge instructions, Clear Liquid Diet
Prescriptions:
New
cefdinir 300 mg capsule
300 mg PO BID Qty: 20 0RF
metronidazole 500 mg tablet
500 mg PO Q8H 10 Days Qty: 30 0RF
No Action
multivitamin Tablet
1 tab PO DAILY
polyethylene glycol 3350 [Miralax] 17 gram Powder In Packet
17 g PO DAILY
propranolol 60 mg Tablet
60 mg PO DAILY
sulfamethoxazole-trimethoprim [Bactrim DS] 800-160 mg Tablet
1 tab PO DAILY
aspirin 81 mg Tablet,Delayed Release (Dr/Ec)
81 mg PO DAILY
warfarin 3 mg Tablet
3 mg PO MOFR
calcium carbonate 600 mg calcium (1,500 mg) Tablet
600 mg PO BID
ascorbic acid (vitamin C) [Vitamin C] 500 mg Tablet
500 mg PO BID
lansoprazole 30 mg Capsule,Delayed Release(Dr/Ec)
30 mg PO BID
docusate sodium [Colace] 100 mg Capsule
400 mg PO DAILY
magnesium 250 mg Tablet
500 mg PO BID
ipratropium bromide 42 mcg (0.06 %) [place],Non-Aerosol
2 spray INTRANASAL QIDPRN PRN (Reason: post nasal drip)
tacrolimus 1 mg Capsule
1 mg PO BID
loratadine [Claritin] 10 mg Tablet
10 mg PO DAILY
fenofibrate nanocrystallized 145 mg Tablet
145 mg PO HS
cholecalciferol (vitamin D3) [Vitamin D3] 125 mcg (5,000 unit) Tablet
125 mcg PO DAILY
Digestive Probiotic 2 billion cell Capsule, Sprinkle
1 cap PO DAILYPRN PRN (Reason: constipation)
clindamycin HCl 300 mg Capsule
300 mg PO DAILYPRN PRN (Reason: prior to dental appt)
atorvastatin 80 mg tablet
80 mg PO QPM
bumetanide 2 mg tablet
4 mg PO DAILY
potassium chloride [Klor-Con M20] 20 mEq tablet,ER particles/crystals
20 meq PO DAILY
tamsulosin 0.4 mg capsule
0.8 mg PO HS
tacrolimus 0.5 mg capsule
0.5 mg PO QPM
oxycodone 5 mg tablet
5 mg PO DAILYPRN PRN (Reason: afternoon nap)
Patient Comments:
05/31/2024: last filled 05/04/24, 90 tabs for 30 days from [facility]
oxycodone 5 mg tablet
10 mg PO HS
Patient Comments:
05/31/2024: last filled 05/04/24, 90 tabs for 30 days from [facility]
sirolimus 0.5 mg tablet
1.5 mg PO DAILY
Ozempic 0.25 mg or 0.5 mg (2 mg/3 mL) pen injector
0.5 mg SC TH
warfarin 3 mg tablet
1.5 mg PO SUTUWETHSA
trazodone 100 mg tablet
150 mg PO HS
levofloxacin 750 mg tablet
750 mg PO Q OTHER DAY Qty: 3 0RF
metronidazole 500 mg tablet
500 mg PO TID Qty: 16 0RF
Referrals:
Denisse Jeronimo MD [Family Provider, Family Practice]
Activity Restrictions/Additional Instructions:
Take antibiotics as prescribed. Eat a clear liquid diet until symptoms improve.
Please follow-up with your family doctor next week. Your Coumadin level should be monitored while taking the antibiotics.
Return to the ER with any new or worsening symptoms including severe pain, fevers, or if you do not feel improved in 3-4 days.
Interventions
Interventions:
*Risk Screen - Suicide Last Done: 07/08/25 13:18
*General Assessment Last Done: 07/08/25 13:18
*Neglect/Abuse Screening Last Done: 07/08/25 13:18
*ED- Fall Risk Assessment Last Done: 07/08/25 13:18
*ED COVID-19 Vaccine History Last Done: 07/08/25 13:18
*Nursing Disposition Last Done: 07/08/25 17:44
QQ-Atfxfs-Fxpwfjgvil Assessment Last Done: 07/08/25 13:16
Discharge Date and Time
Discharge Date/Time: 07/08/25 17:45
Print Language: SETSWANA
[2025-07-08 13:22] VITALS: BMI 28.1
[2025-07-08] MEDS: DILAUDID 0.5 MG IV (13:25)
[2025-07-08] MEDS: OMNIPAQUE 50 ML PO (13:26)
[2025-07-08] MEDS: NSS IV (13:26)
[2025-07-08] MEDS: NSS 500 IV (13:27)
[2025-07-08 13:32] VITALS: BP 122/74
[2025-07-08 13:50] LABS: Hematocrit 35.6 % (39.0-52.0); Hemoglobin 12.2 g/dL (13.0-18.0); Mean Corp Hgb Conc. 34.3 g/dL (33.0-37.0); Mean Corpuscular Volume 82.4 fL (80.0-94.0); Nucleated Red Blood Cells % 0 % (-); Platelet Count 161 10^3/uL (130-400); Red Cell Dist. Width 13.2 % (11.5-14.5)
[2025-07-08 14:02] LABS: INR 2.29; PT 25.3 Sec (11.4-14.6)
[2025-07-08 14:30] LABS: ALT (SGPT) 27 U/L (0-50); AST (SGOT) 31 U/L (17-59); Albumin 4.5 g/dl (3.5-5.0); Alkaline Phosphatase 44 U/L (38-126); Blood Urea Nitrogen 43 mg/dl (9-20); Calcium 9.5 mg/dl (8.4-10.2); Carbon Dioxide 29 mmol/L (22-30); Chloride 100 mmol/L (98-107); Estimated Creatinine Clearance 36 ml/min; Glucose 100 mg/dl (70-99); Lipase 151 U/L (23-300); Potassium 3.7 mmol/L (3.5-5.1); Sodium 139 mmol/L (135-145); Total Protein 7.7 g/dl (6.3-8.2); eGFR 34.50
[2025-07-08 17:47] VITALS: BP 110/74
== END 2025-07-08 17:45 | disposition home or self-care (01) ==
LOC: EMR 10:43
PROVIDERS: Physician Assistant; EMERGENCY PHYSICIAN Emergency Medicine; FAMILY PHYSICIAN Family Medicine
DX: K57.32 Diverticulitis of large intestine without perforation or abscess without bleeding (principal); E11.9 Type 2 diabetes mellitus without complications; I11.0 Hypertensive heart disease with heart failure; I50.9 Heart failure, unspecified; I48.91 Unspecified atrial fibrillation; I42.9 Cardiomyopathy, unspecified; Z79.01 Long term (current) use of anticoagulants; D68.2 Hereditary deficiency of other clotting factors; E78.00 Pure hypercholesterolemia, unspecified; G47.30 Sleep apnea, unspecified; Z85.038 Personal history of other malignant neoplasm of large intestine; Z94.1 Heart transplant status
CPT/HCPCS: 96374; 96361; 99284; 74176; 80053; 83605; 83690; 85025; 85610